=== PATIENT | male | born 1945 | race Caucasian/White ===

== ENCOUNTER 2023-11-29 06:20 | Inpatient (IN) | payer MEDICARE, SELFPAY ==
--- NOTE | 2023-10-25 12:02 | CM ---
Patient is scheduled for an elective L TKR on 11/29/23. Spoke with patient prior to surgery via telephone. Introduced role of Orthopedic Navigator. Patient reports that he lives with his in a one story home. There is one step to enter. He
currently functions independently. He has a cane, rolling walker and toilet rails. His toilet is high. He has never had VN services. PCP is Dr. Annabella Mary.
Discussed orthopedic program and post surgical plans. Reviewed anticipated length of stay and that goal is for her to return home at discharge. Also reviewed outpatient PT. Patient is in agreement with tentative plan and will go directly to
outpatient PT at [facility]. He will have support from his when he goes home.
Patient has completed online education.
Plan: Orthopedic Navigator will remain available to assist with the care of patient and will reassess discharge needs after surgery.
[2023-11-08 10:53] VITALS: BMI 36.5
[2023-11-08 10:53] LABS: Hematocrit 43.8 % (39.0-52.0); Hemoglobin 14.8 g/dL (13.0-18.0); Mean Corp Hgb Conc. 33.8 g/dL (33.0-37.0); Mean Corpuscular Volume 91.8 fL (80.0-94.0); Mean Platelet Volume 9.9 fL (7.4-10.4); Platelet Count 180 10^3/uL (130-400); Red Blood Cell Count 4.77 10^6/uL (4.70-6.10); Red Cell Dist. Width 12.1 % (11.5-14.5); White Blood Cell Count 5.8 10^3/uL (4.8-10.8)
[2023-11-08 11:22] LABS: ALT (SGPT) 29 U/L (0-50); AST (SGOT) 25 U/L (17-59); Albumin 3.6 g/dl (3.5-5.0); Alkaline Phosphatase 105 U/L (38-126); Blood Urea Nitrogen 28 mg/dl (9-20); Carbon Dioxide 26 mmol/L (22-30); Chloride 103 mmol/L (98-107); Estimated Creatinine Clearance 65 ml/min; Glucose 120 mg/dl (70-99); Potassium 4.1 mmol/L (3.5-5.1); Sodium 137 mmol/L (135-145); Total Bilirubin 0.9 mg/dl (0.2-1.3); Total Protein 6.3 g/dl (6.3-8.2); eGFR 56.93
[2023-11-08 12:13] LABS: Glycohemoglobin (HgbA1c) 6.2 % (4.0-5.6)
[2023-11-08 15:54] VITALS: BMI 36.5
[2023-11-29] VITALS (17 sets, daily range): BP systolic 108–155; BP diastolic 70–94; PULSE 62; BMI 36.5
[2023-11-29] MEDS: NORMOSOL-R 1000 IV ×2 (07:42→13:03)
[2023-11-29] MEDS: TYLENOL 650 MG PO ×4 (07:42→23:23)
[2023-11-29] MEDS: CELEBREX 200 MG PO (07:42)
[2023-11-29] MEDS: DILAUDID 0.25 MG IV ×4 (12:08→12:59)
[2023-11-29] MEDS: ROXICODONE 5 MG PO (12:53)
[2023-11-29] MEDS: ZOFRAN 4 MG IV (13:49)
--- NOTE | 2023-11-29 14:17 | PTCARENOTE ---
Patient admitted from pacu post left total knee replacement.The patient denies pain at present.Patient does complain of nausea.Zofran was just given in the pacu before he came up.Vital signs are stable.The Mepilex dressing is dry and intact without
any drainage.Neurovascular assessment is within normal limits and ongoing.The patient is in his bed with the call khanna in reach.His is at the bedside.
--- NOTE | 2023-11-29 14:26 | W.PN.ORTHO ---
Today's Communication / Plan
-
D/c when clinically stable.
Assessment
.
Distal Motor Intact: Yes
Dressing:
Clean, dry and intact.
Assessment:
L knee OA s/p L TKA w/ Dr Krishnan 11/29/23
DVT prophylaxis - Eliquis at modified dosing, b/l venous foot pumps
- Home Eliquis dosing to be resumed POD 3 if remaining hemodynamically stable
Queasiness - continue Zofran prn
- NO COMPAZINE
- Will give IV Protonix x1
HTN - + parameters - monitor BP
Paroxysmal atrial fibrillation
Frequent PVCs
Sick sinus syndrome, status post right-sided dual chamber pacemaker implantation 2018
First-degree AV block
Left anterior fascicular block
- Monitor on tele
- Continue Coreg
- Eliquis as stated above
Obstructive sleep apnea, inconsistent with device - monitor O2
- IS
- Will order BiPAP HS and advise compliance
Chronic kidney disease stage 3 - minimize nephrotoxins
GERD - add Pepcid HS
Dyslipidemia
Nonobstructive coronary artery disease on cardiac cath 2018
Mild aortic stenosis
Mild tricuspid regurgitation
Diverticulosis
Vertigo
Hypothyroidism
History of retinal tear
Congenital blindness of right eye
Prediabetes, A1c 6.2
Obesity, BMI 36.5
Remote history of infrequent tobacco abuse
Plan
.
Surgery / Date: L TKA w/ Dr Krishnan 11/29/23
DVT Prophylaxis: Other (Eliquis at modified dosing )
Activity:
Out of bed.
PT/OT
Discharge Plan: Home w/ Outpatient PT
Subjective
.
.:
Patient resting comfortably in PACU.
Current L knee pain 4/10 but bearable per patient.
Reports slight queasiness; IV Zofran provided.
Denies any other new significant complaints.
Vital Signs and Labs
.
Vital Signs and Labs:
Lab Results
11/08/23 08:27
11/08/23 08:27
Temp Pulse Resp BP Pulse Ox
98.6 F 77 18 142/94 98
11/29/23 07:24 11/29/23 07:24 11/29/23 07:24 11/29/23 07:24 11/29/23 07:24
Physical Exam
-
HEENT: No pallor, cyanosis, or jaundice. Throat clear.
NECK: Supple. No JVD.
RESPIRATORY: Lungs clear to auscultation.
CVS: S1, S2 normal. RRR.�+ PPM.
ABDOMEN: Soft, non-tender. No distension. Obese.
EXTREMITIES: Strength equal, no calf pain with palpation/dorsiflexion. Calves soft.
BUSINESS DEVELOPMENT ANALYST: AOx3. No focal deficits. superintendent recreation grossly intact
[2023-11-29] MEDS: NORVASC PO (15:29)
[2023-11-29] MEDS: PROTONIX IV 40 MG IV (15:31)
[2023-11-29] MEDS: NSS (PRESERVATIVE FREE) 10 ML IV (15:31)
[2023-11-29 16:01] LABS: Glucose - Point of Care 165 mg/dl (70-99)
--- NOTE | 2023-11-29 16:56 | OR.RPT ---
Operative Report
Operative Report
Orthopaedic Surgery Operative Note
DATE OF OPERATION: 11/29/2023
PREOPERATIVE DIAGNOSES: Osteoarthritis, left knee.
POSTOPERATIVE DIAGNOSES: Osteoarthritis, left knee.
OPERATION PERFORMED: Left total knee arthroplasty.
SURGEON: Sixto Krishnan MD
ASSISTANTS: Su De Jesus PA-C who assisted with patient and limb positioning and retraction
ANESTHESIA: Spinal
COMPLICATIONS: None.
ESTIMATED BLOOD LOSS: 20mL
DRAINS: None
TOURNIQUET TIME: 51 minutes.
IMPLANTS:
- Ca Persona CR Femur, size 11
- Ca Persona tibia base plate, size F
- Ca Persona ultracongruent articular surface, 13 mm
- DJO [place] bone cement
INDICATIONS: The patient presented to my office with debilitating left knee pain due to osteoarthritis. We reviewed the natural history of this problem, as well as the risks, benefits, and alternatives of various treatment options. The patient
exhausted all nonoperative treatment options and wished to proceed with knee replacement surgery. The patient understood the risks which included, but were not limited to, bleeding, infection, failure to relieve pain, more pain than preop, damage to
blood vessels and nerves, need for reoperation, mechanical failure of the implants, wound healing problems, stiffness, instability, blood clot, pulmonary embolism, myocardial infarction, pneumonia, arrhythmia, CVA, and . The patient accepted
these risks and wished to proceed. All questions were answered, and informed consent was obtained.
PROCEDURE IN DETAIL: The patient was identified in the preoperative holding area. The left knee was identified as the operative site. The patient was taken in the operating room and placed in a supine position on the operating table. Spinal
anesthesia was performed. IV antibiotics and tranexamic acid were administered. A bump was placed under the left hemipelvis. A well-padded tourniquet was placed on the proximal thigh. All bony prominences were well padded. The left lower extremity
was prepped and draped in the usual sterile fashion.
We performed a surgical time-out. An interarticular block was performed with local anesthetic with epinephrine. The limb was exsanguinated with an Esmarch bandage, then the tourniquet was inflated to 250 mmHg. A midline skin incision was made
followed by a medial parapatellar arthrotomy. A subperiosteal peel was performed on the medial tibia. I excised part of the infrapatellar fat pad to improve our visualization as well as tissue over anterior femur. The patella was everted and the
knee was flexed. I excised the remnants of the anterior and posterior cruciate ligaments as well as tibial and femoral osteophytes with rongeurs.
The knee was flexed, and the extramedullary tibial cutting guide was aligned. Morton was aligned at neutral, rotation was centered on the tibial tubercle, and coronal alignment was aligned with the mechanical axis of the tibia and center of the ankle
joint. The cut height was 10mm off the lateral tibia joint surface. The guide was secured into place. The MCL and LCL were protected. The tibia surface was cut. The cut surface was inspected after removal to ensure appropriate height and slope based
on the preoperative plan. The cut was checked with a drop sudhir. It was centered nicely at the ankle.
A drill was used to open the femoral canal. The intramedullary distal femoral cutting guide was inserted into the femur. This was set at 5 degrees +0. This was secured into place with three pins. The cut level was checked with an fatoumata wing. The
distal femur was cut through the cutting guide. The IM guide was reinserted to double check that the level of resection was flush and in appropriate alignment.
Pond Eddy�s line and the transepicondylar axis were marked on the femur. The femoral sizing guide was applied to the anterior femur. Pins were inserted, and the 4-in-1 cutting guide was applied and secured into place. The rotation was compared to
Pond Eddy�s line, the transepicondylar axis, and the neutral tibia cut and was found to be appropriate. The width was checked and found to be appropriate and lateralized on the femur. The anterior, posterior, and chamfur cuts were made. A lamina
reel cart operator was used to open the flexion gap, and posterior osteophytes were removed with a curved osteotome. The remnant medial and lateral meniscus were also removed. I prophylactically cauterized the lateral geniculate arteries. A 10mm spacer block
was applied to the flexion gap and was noted to be balanced medially and laterally. The knee was extended, and the block showed symmetric to extension and flexion gaps.
The tibia was exposed and sized. Rotation was set in line with the tibial tubercle and congruent with the femur. The trial was secured into place with two pins. The trial femur was impacted into place, and a trial articular surface was placed. The
patella tracked centrally throughout the arc of motion without need for further releases. No full thickness cartilage defects.
The trials were removed. The tibia keel was prepared with the punch and the drill. The bone surfaces were irrigated with sterile saline and dried. The cement was mixed in a vacuum mixer. Cement gun was used to apply cement to the tibial surface and
the undersurface of the tibial implant. Cement was pressurized into the tibial canal and tibia surface. The tibial component was impacted into place. Excess cement was removed. Cement was applied to the femoral surface and the femoral component. The
femoral component was impacted into place, and excess cement removed. A trial articular surface was inserted, and the knee was extended while the cement polymerized. The tourniquet was let down, and meticulous hemostasis was achieved. Dilute
betadine was poured into the wound and allowed to soak for 3 minutes. The knee was irrigated with copious normal saline.
Once the cement was polymerized, the trial articular surface was removed. Any excess cement was removed. The knee was trialed, and the final articular surface was selected and inserted into the tibial locking mechanism. The knee was reduced. A fresh
drape was applied to the surgical field.
The arthrotomy was closed with 0-PDS. Once closed, an interarticular block was performed with local anesthetic with epi. The deep dermal layer was closed with 2-0 PDS, and the subcuticular skin was closed with 3-0 monocryl. A Dermabond Prineo
dressing was applied to the skin in full flexion. Once this was completely dry, a sterile waterproof dressing was applied.
The anesthesia team performed an adductor canal block in the OR. The patient awoke from anesthesia without any difficulties. The sponge and instrument counts were correct x2 at the end of the case.
Juan Carlos Krishnan MD
[2023-11-29] MEDS: ANCEF 5 IV ×2 (18:02→23:23)
[2023-11-29] MEDS: ORETIC 12.5 MG PO (21:21)
[2023-11-29] MEDS: COLACE 100 MG PO (21:21)
[2023-11-29] MEDS: NORVASC 5 MG PO (21:21)
[2023-11-29] MEDS: PEPCID 20 MG PO (21:21)
[2023-11-29] MEDS: COREG 12.5 MG PO (21:21)
[2023-11-29] MEDS: ELIQUIS 2.5 MG PO (21:21)
[2023-11-29] MEDS: SENOKOT PO (21:22)
[2023-11-29] MEDS: BACTROBAN 2% OINTMENT 1 APPLIC NASAL (21:22)
[2023-11-29] MEDS: DELTASONE 40 MG PO (21:22)
[2023-11-29] MEDS: CRESTOR 40 MG PO (21:22)
[2023-11-29 21:30] LABS: Glucose - Point of Care 148 mg/dl (70-99)
[2023-11-29] MEDS: MAALOX 30 ML PO (23:48)
[2023-11-30 03:40] VITALS: BP 145/74
[2023-11-30] MEDS: TYLENOL 650 MG PO ×3 (04:00→12:38)
[2023-11-30] MEDS: SYNTHROID 137 MCG PO (06:15)
[2023-11-30 07:00] LABS: Glucose - Point of Care 158 mg/dl (70-99)
[2023-11-30 07:23] VITALS: BP 136/75
[2023-11-30] MEDS: SENOKOT 17.1999999999999993 MG PO (08:00)
[2023-11-30] MEDS: FLORASTOR 250 MG PO (08:34)
[2023-11-30] MEDS: COREG 12.5 MG PO (08:38)
[2023-11-30] MEDS: COLACE 100 MG PO (08:38)
[2023-11-30] MEDS: ELIQUIS 2.5 MG PO (08:38)
[2023-11-30] MEDS: NORVASC PO (08:39)
[2023-11-30] MEDS: ROXICODONE 5 MG PO ×2 (08:41→12:39)
[2023-11-30] MEDS: BACTROBAN 2% OINTMENT 1 APPLIC NASAL (08:43)
--- NOTE | 2023-11-30 09:01 | CM ---
Addendum entered by Corie Saucedo 11/30/23 10:58:
Patient worked with PT and OT. He will need a commode for use at home; script obtained and given to OT. Patient expressed no concerns about going home. He would like his to be present for discharge instructions. RN aware.
Original Note:
Reviewed chart and held rounds with PT, OT and nursing. Patient admitted as planned for elective L TKR. Met with patient at bedside. Confirmed information previously obtained for assessment. Also discussed discharge plans. The plan is for patient to
return home at discharge. He will have support from his when he goes home. Patient will go directly to outpatient PT and will go to [facility]. He has an appointment scheduled for Sunday, 12/02.
Patient has a rolling walker, cane and toilet rails.
He will use [facility] pharmacy for discharge prescriptions.
Discharge plans were reviewed with patient's on 11/28.
--- NOTE | 2023-11-30 10:14 | W.PN.ORTHO ---
Today's Communication / Plan
-
Await OT recs. Did fairly well w/ PT.
D/c later today if remaining clinically stable.
Assessment
.
Distal Motor Intact: Yes
Dressing:
Clean, dry and intact.
Assessment:
L knee OA s/p L TKA w/ Dr Krishnan 11/29/23
DVT prophylaxis - Eliquis at modified dosing, b/l venous foot pumps
- Home Eliquis dosing to be resumed POD 3 since remaining hemodynamically stable
Queasiness - relief provided w/ Zofran, Protonix, Pepcid, and Maalox
- NO COMPAZINE
- Will continue Zofran prn and Pepcid HS upon d/c
HTN - + parameters - BPs overall stable
Paroxysmal atrial fibrillation
Frequent PVCs
Sick sinus syndrome, status post right-sided dual chamber pacemaker implantation 2018
First-degree AV block
Left anterior fascicular block
- Rhythm stable on tele
- Continue Coreg
- Eliquis as stated above
Obstructive sleep apnea, inconsistent with device - O2 stable on RA
- IS
- Will advise continued compliance with BiPAP
Chronic kidney disease stage 3 - continue to minimize nephrotoxins
GERD - added Pepcid HS
Dyslipidemia
Nonobstructive coronary artery disease on cardiac cath 2017
Mild aortic stenosis
Mild tricuspid regurgitation
Diverticulosis
Vertigo
Hypothyroidism
History of retinal tear
Congenital blindness of right eye
Prediabetes, A1c 6.2
Obesity, BMI 36.5
Remote history of infrequent tobacco abuse
Plan
.
Surgery / Date: L TKA w/ Dr Krishnan 11/29/23
DVT Prophylaxis: Other (Eliquis )
Activity:
Out of bed.
PT/OT
Discharge Plan: Home w/ Outpatient PT
Subjective
.
.:
Patient resting comfortably in his chair this AM.
Queasiness yesterday, improving w/ anti-emetics as needed and IV Protonix, Maalox, and Pepcid.
Denies any new significant complaints today.
Eager for potential d/c.
Vital Signs and Labs
.
Vital Signs and Labs:
Lab Results
11/08/23 08:27
11/08/23 08:27
Temp Pulse Resp BP Pulse Ox
98.1 F 89 18 136/75 94
11/30/23 07:23 11/30/23 07:23 11/30/23 07:23 11/30/23 08:38 11/30/23 07:23
Non-invasive Hgb result: 15
Physical Exam
-
HEENT: No pallor, cyanosis, or jaundice. Throat clear.
NECK: Supple. No JVD.
RESPIRATORY: Lungs clear to auscultation.
CVS: S1, S2 normal. RRR.�+ PPM.
ABDOMEN: Soft, non-tender. No distension. Obese.
EXTREMITIES: Mild post-op L knee edema. Strength equal, no calf pain with palpation/dorsiflexion. Calves soft.
SENIOR SQL SERVER DEVELOPER: AOx3. No focal deficits. build technician grossly intact
[2023-11-30 10:45] VITALS: BP 177/107; PULSE 84; O2SAT 97
--- NOTE | 2023-11-30 10:45 | W.DS.TRANS ---
DC Summary - Roll Cleaner
-
Discharge Instructions:
Discharge Diagnosis/Procedures L knee OA s/p L TKA w/ Dr Krishnan 11/29/23
Diet Regular
Activity As tolerated,With Walker
Driving Restrictions Not until seen by your Dr
Bathing Restrictions OK to Shower
Other Services PT
Wound Care Leave dressing on until seen by surgeon's office
for follow-up appointment in 2 weeks.
Instructions:
Stand-Alone Forms: Total Hip/Knee Replacement D/C
Changes to Home Medications: Yes
Discharge Medications:
DC Medications w/original date entered in [facility]
apixaban 5 mg tablet (Eliquis) 5 mg PO BID Blood Clot Prevention/Tx 11/09/17
rosuvastatin 20 mg tablet 40 mg PO HS High Cholesterol 11/09/17
Bifidobacterium infantis 4 mg capsule (Align) 4 mg PO DAILY Gastrointestinal Issue 11/06/23
carvedilol 12.5 mg tablet 12.5 mg PO BID Blood Pressure 11/06/23
levothyroxine 137 mcg tablet 137 mcg PO DAILY Thyroid 11/06/23
mupirocin 2 % topical ointment 1 applic intranasal BID #1 tube 11/08/23
acetaminophen 500 mg tablet 1,000 mg PO Q6H #0 tabs 11/30/23
amlodipine 5 mg tablet 5 mg PO BID Blood Pressure #0 tabs 11/30/23
apixaban 2.5 mg tablet (Eliquis) 2.5 mg PO BID #3 tabs 11/30/23
docusate sodium 100 mg capsule 100 mg PO BID #30 caps 11/30/23
famotidine 20 mg tablet 20 mg PO HS #30 tabs 11/30/23
hydrochlorothiazide 12.5 mg tablet 12.5 mg PO HS Fluid Retention/Swelling #0 tabs 11/30/23
ondansetron HCl 4 mg tablet 4 mg PO Q6H PRN nausea and vomiting #30 tabs 11/30/23
oxycodone 5 mg tablet 5 - 10 mg PO Q6H PRN moderate-severe pain #30 tabs 11/30/23
prednisone 10 mg tablet 40 mg PO TAPER #20 tabs 11/30/23
sennosides 8.6 mg tablet (Senna Lax) 17.2 mg PO BID #30 tabs 11/30/23
Home Medication Changes
acetaminophen 500 mg tablet 1,000 mg PO Q6H #0 tabs 11/30/23
apixaban 2.5 mg tablet (Eliquis) 2.5 mg PO BID #3 tabs 11/30/23 - then resume Eliquis 5 mg PO BID
docusate sodium 100 mg capsule 100 mg PO BID #30 caps 11/30/23
famotidine 20 mg tablet 20 mg PO HS #30 tabs 11/30/23
ondansetron HCl 4 mg tablet 4 mg PO Q6H PRN nausea and vomiting #30 tabs 11/30/23
oxycodone 5 mg tablet 5 - 10 mg PO Q6H PRN moderate-severe pain #30 tabs 11/30/23
prednisone 10 mg tablet 40 mg PO TAPER #20 tabs 11/30/23
sennosides 8.6 mg tablet (Senna Lax) 17.2 mg PO BID #30 tabs 11/30/23
Pending Results: No
[2023-11-30 10:58] VITALS: BP 177/100; O2SAT 96
== END 2023-11-30 14:43 | disposition home or self-care (01) | DRG 470 ==
LOC: 2 SOUTH 06:20
PROVIDERS: ADMITTING PHYSICIAN Orthopaedic Surgery; FAMILY PHYSICIAN Internal Medicine
PROC: 0SRD0J9 Replacement of Left Knee Joint with Synthetic Substitute, Cemented, Open Approach (ICD-10-PCS; 2023-11-29)
DX: M17.12 Unilateral primary osteoarthritis, left knee (principal); I12.9 Hypertensive chronic kidney disease with stage 1 through stage 4 chronic kidney disease, or unspecified chronic kidney disease; N18.30 Chronic kidney disease, stage 3 unspecified; I48.0 Paroxysmal atrial fibrillation; I49.5 Sick sinus syndrome; K21.9 Gastro-esophageal reflux disease without esophagitis; E66.9 Obesity, unspecified; Z68.36 Body mass index [BMI] 36.0-36.9, adult; Z87.891 Personal history of nicotine dependence
CPT/HCPCS: 36415; 73560; 80053; 82962; 83036; 85027; 87070; 94660; 97110; 97116; 97163; 97166; 97530; 97535; C1713; C1776

== ENCOUNTER 2024-07-18 18:33 | Emergency (ER) | payer MEDICARE, SELFPAY ==
[2024-07-18 18:36] VITALS: BP 154/94
--- NOTE | 2024-07-18 20:20 | ED.GENMED ---
History of Present Illness
General
Chief Complaint: Skin Problem
Source: patient
Exam Limitations: none
Time Seen by Provider: 07/18/24 20:01
Nursing documentation reviewed up to this point in time: agreed with
History of Present Illness
History of Present Illness:
Patient status post right thumb surgery, removal of the cast 2 days ago in the office with Dr. Franco, presents to ED secondary to increased redness over the past 2 days. Denies fever or chills. Denies drainage. Denies pain, but reports mild
discomfort.
Past History
Past History
ED Past Medical History: Arrthythmia, GERD, HTN and Hypothyroidism
ED Past Surgical History: None
Social History
Tobacco: Non-smoker
Living: with family
Review of Systems
Review of Systems
Allergies reviewed?: Yes
All Other Systems: ROS reviewed and negative except as documented in HPI and ROS
Constitutional: Reports no symptoms
Musculoskeletal: Reports other (Finger swelling)
Skin: Reports other (Finger redness)
Neurological: Reports no symptoms
Phy Exam
Physical Exam
Physical Exam:
Physical Exam
General: no apparent distress, not acutely ill. afebrile
Head: nc/at. eomi
Neck: supple. no meningeal signs.
Neuro: alert and oriented. no focal neurological deficits
Skin: surgical scar noted over base of right thumb with surrounding erythema with minimal streaking upto mid forearm.
Psychiatric: well kept. interactive and cooperative
Extremities: no edema. no calf tenderness.
Course
Orders/Labs/Results
Orders:
Orders
07/18/24 20:30
Doxycycline [Vibramycin] 100 mg PO NOW STA
Vital Signs
Initial and Last Documented VS:
Initial Vital Signs
Temp Pulse Resp BP Pulse Ox
97.7 F 86 18 154/94 94
07/18/24 18:36 07/18/24 18:36 07/18/24 18:36 07/18/24 18:36 07/18/24 18:36
Last Documented Vital Signs
Temp Pulse Resp BP Pulse Ox
97.7 F 71 16 137/80 96
07/18/24 18:36 07/18/24 20:37 07/18/24 20:37 07/18/24 20:37 07/18/24 20:37
MDM/Problems Addressed
MDM/Problems Addressed:
Discussed with on-call orthopaedic surgeon () - agrees with plan to d/c patient home on oral abx, along with office f/u next week. Due to penicillin allergy, patient will be started on doxycycline.
*Critical Care Note
Total Time (30-74mins, 75-104mins- exclusive of procedures): Not Applicable
ED Attending Note
-
Portions of this chart may have been created with voice recognition software.� Occasional wrong word or��sound alike� substitutions may have occurred due to the inherent limitations of voice recognition software.
Discharge Plan
Departure
Patient Disposition: Home (Routine Discharge)
Date of Disposition: 07/18/24
Time of Disposition: 20:30
Patient with high blood pressure during this ER visit?: Yes
Discharge Problem:
Cellulitis
Instructions: Cellulitis (Skin Infection), Adult (DC)
Prescriptions:
New
doxycycline monohydrate 100 mg capsule
100 mg PO BID Qty: 13 0RF
No Action
rosuvastatin 20 MG tablet
40 mg PO HS
Eliquis 5 MG tablet
5 mg PO BID
levothyroxine 137 mcg Tablet
137 mcg PO DAILY
carvedilol 12.5 mg Tablet
12.5 mg PO BID
Align 4 mg Capsule
4 mg PO DAILY
mupirocin 2 % ointment
1 applic intranasal BID Qty: 1 0RF
docusate sodium 100 mg Capsule
100 mg PO BID Qty: 30 0RF
Eliquis 2.5 mg Tablet
2.5 mg PO BID Qty: 3 0RF
Rx Instructions:
Cut 5 mg tab in 09/25 (= 2.5 mg) and take twice a day from 3/8 PM to 3/9 PM.
Can resume 5 mg twice a day on 3/10 AM
famotidine 20 mg Tablet
20 mg PO HS Qty: 30 0RF
Rx Instructions:
Take nightly while on post-operative pain meds to prevent GI upset.
oxycodone 5 mg Tablet
5 - 10 mg PO Q6H PRN (Reason: moderate-severe pain) Qty: 30 0RF
Rx Instructions:
1 tab for moderate pain, 2 if severe.
Dx total joint.
sennosides [Senna Lax] 8.6 mg Tablet
17.2 mg PO BID Qty: 30 0RF
ondansetron HCl 4 mg tablet
4 mg PO Q6H PRN (Reason: nausea and vomiting) Qty: 30 0RF
prednisone 10 mg tablet
40 mg PO TAPER Qty: 20 0RF
Rx Instructions:
4 TABS X 2 DAYS, 3 TABS X 2 DAYS, 2 TABS X 2 DAYS, 1 TAB X 2 DAYS, THEN STOP
amlodipine 5 MG tablet
5 mg PO BID Qty: 0 0RF
Rx Instructions:
HOLD IF systolic blood pressure <130 while on Oxycodone.
acetaminophen 500 mg Tablet
1,000 mg PO Q6H Qty: 0 0RF
Rx Instructions:
DO NOT exceed >4000 mg daily.
hydrochlorothiazide 12.5 mg Tablet
12.5 mg PO HS Qty: 0 0RF
Rx Instructions:
HOLD IF systolic blood pressure <130 while on Oxycodone.
Referrals:
Chad Franco MD [Active] -
Annabella Mary DO [Family Provider] -
Activity Restrictions/Additional Instructions:
As discussed, please follow-up with your orthopedic surgeon for reevaluation next week. Your prescription has been sent electronically to [facility] pharmacy in [place]
Interventions
Interventions:
*Risk Screen - Suicide Last Done: 07/18/24 20:37
*General Assessment Last Done: 07/18/24 20:37
*Neglect/Abuse Screening Last Done: 07/18/24 20:37
*ED COVID-19 Vaccine History Last Done: 07/18/24 20:37
*Nursing Disposition Last Done: 07/18/24 20:50
ED-Skin Assessment Last Done: 07/18/24 20:37
Discharge Date and Time
Discharge Date/Time: 07/18/24 20:50
Print Language: MOROCCAN
[2024-07-18] MEDS: VIBRAMYCIN 100 MG PO (20:36)
[2024-07-18 20:37] VITALS: BP 137/80
== END 2024-07-18 20:50 | disposition home or self-care (01) ==
LOC: EMR 18:33
PROVIDERS: EMERGENCY PHYSICIAN Emergency Medicine; FAMILY PHYSICIAN Internal Medicine
DX: L03.011 Cellulitis of right finger (principal); I10 Essential (primary) hypertension; E03.9 Hypothyroidism, unspecified; K21.9 Gastro-esophageal reflux disease without esophagitis
CPT/HCPCS: 99283

== ENCOUNTER → 2024-09-18 11:47 | Outpatient (REF) | payer MEDICARE, SELFPAY | LOC: RAD 11:47 | PROVIDERS: ATTENDING PHYSICIAN Internal Medicine Critical Care Medicine; FAMILY PHYSICIAN Internal Medicine | DX: J45.909 Unspecified asthma, uncomplicated (principal); I49.5 Sick sinus syndrome; R05.1 Acute cough | CPT/HCPCS: 71046 ==

== ENCOUNTER → 2025-04-14 07:55 | Outpatient (REF) | payer MEDICARE, SELFPAY | LOC: RCS 07:55 | PROVIDERS: ATTENDING PHYSICIAN Internal Medicine; FAMILY PHYSICIAN Internal Medicine | DX: I48.0 Paroxysmal atrial fibrillation (principal) | CPT/HCPCS: 93306; Q9950 ==

== ENCOUNTER 2025-04-20 07:05 | Day surgery (SDC) | payer MEDICARE, SELFPAY | END 2025-04-20 09:25 | disposition home or self-care (01) | LOC: CATH 07:05 | PROVIDERS: ATTENDING PHYSICIAN Internal Medicine; FAMILY PHYSICIAN Internal Medicine | DX: I48.0 Paroxysmal atrial fibrillation (principal); Z79.01 Long term (current) use of anticoagulants | CPT/HCPCS: 92960; 93005 ==

== ENCOUNTER → 2025-05-05 08:32 | Outpatient (REF) | payer MEDICARE, SELFPAY ==
[2025-05-05 10:00] LABS: Blood Urea Nitrogen 26 mg/dl (9-20); Calcium 9.1 mg/dl (8.4-10.2); Carbon Dioxide 26 mmol/L (22-30); Chloride 107 mmol/L (98-107); Glucose 111 mg/dl (70-99); Potassium 4.9 mmol/L (3.5-5.1); Sodium 141 mmol/L (135-145); eGFR > 60.00
== END ==
LOC: REG 08:32
PROVIDERS: ATTENDING PHYSICIAN Internal Medicine; FAMILY PHYSICIAN Internal Medicine
DX: I25.10 Atherosclerotic heart disease of native coronary artery without angina pectoris (principal); I10 Essential (primary) hypertension
CPT/HCPCS: 36415; 80048

== ENCOUNTER → 2025-07-09 07:17 | Outpatient (REF) | payer MEDICARE, SELFPAY ==
--- NOTE | 2025-07-09 09:11 | CARDSERVDEF ---
Echocardiogram with Definity completed after protocol screening completed. Allergies verified.
Patent IV site: _Right antecubital 22 G PC ____
IV site flushed with 0.9% NaCl pre and post administration.
Diluted bolus method utilized to enhance visualization of ventricular hyatt.
Total volume given: __7__ mL
Patient tolerated all procedures well without complications.
Definity given by Radha Varghese client technologies analyst and [facility] D/C ed by Radha Varghese as well.
[2025-07-09 09:50] LABS: ALT (SGPT) 20 U/L (0-50); AST (SGOT) 18 U/L (17-59); Albumin 3.9 g/dl (3.5-5.0); Alkaline Phosphatase 105 U/L (38-126); Blood Urea Nitrogen 22 mg/dl (9-20); Calcium 9.1 mg/dl (8.4-10.2); Carbon Dioxide 28 mmol/L (22-30); Chloride 108 mmol/L (98-107); Glucose 110 mg/dl (70-99); HDL Cholesterol 36 mg/dl; LDL Cholesterol, Calculated 103 mg/dl; Potassium 4.8 mmol/L (3.5-5.1); Sodium 140 mmol/L (135-145); Total Protein 7.0 g/dl (6.3-8.2); Very Low Density Lipoprotein 40 mg/dl (0-30); eGFR > 60.00
== END ==
LOC: RCS 07:17
PROVIDERS: ATTENDING PHYSICIAN Internal Medicine; FAMILY PHYSICIAN Internal Medicine; OTHER PHYSICIAN Nurse Practitioner
DX: Z95.0 Presence of cardiac pacemaker (principal); I49.5 Sick sinus syndrome; I42.0 Dilated cardiomyopathy; I25.10 Atherosclerotic heart disease of native coronary artery without angina pectoris; I10 Essential (primary) hypertension
CPT/HCPCS: 36415; 80053; 80061; 93306